=== PATIENT | male | born 1970 | race Two or more races ===

== ENCOUNTER 2016-05-05 12:20 | Emergency (ER) | payer OTHER ==
--- NOTE | 2016-05-05 12:36 | ER Document Report ---
ED Medical Screen (RME) - General Stated Complaint: LEFT SIDE FACIAL NUMBNESS Time seen by provider: 12:31 Mode of Arrival: Ambulatory Information source: Patient Notes: 45-year-old male felt like he had a swollen tender sub-mandibular lymph node that started 2 days ago. Today he has numbness around the left side of his face in the left eye does not blink as fast as the right eye. He can still raise both of his eyebrows. No Weakness in extremities no headache. I have greeted and performed a rapid initial assessment of this patient. A comprehensive ED assessment, evaluation of the patient, analysis of test results , and completion of the medical decision making process will be contacted by additional ED providers. - Related Data Allergies/Adverse Reactions: No Known Allergies Allergy (Verified 05/05/16 12:29) Past Medical History - Immunizations Hx Diphtheria, Pertussis, Tetanus Vaccination: Yes
--- NOTE | 2016-05-05 14:44 | ER Document Report ---
ED General - General Chief Complaint: Numbness of Face Stated Complaint: LEFT SIDE FACIAL NUMBNESS Mode of Arrival: Ambulatory Information source: Patient Notes: Patient presents to the emergency department with complaints of left-sided numbness to his face when he woke up this am. He denies trauma. He denies fever vomiting diarrhea. Denies past medical history reports his eyes been healthy. Patient is speaking in a clear voice no weakness noted.. TRAVEL OUTSIDE OF THE [place] IN LAST 30 DAYS: No - HPI Onset: This morning Onset/Duration: Sudden Quality of pain: No pain Severity: None Pain Level: Denies Associated symptoms: None Exacerbated by: Denies Relieved by: Denies Similar symptoms previously: No Recently seen / treated by doctor: No - Related Data Allergies/Adverse Reactions: No Known Allergies Allergy (Verified 05/05/16 12:29) Past Medical History - General Information source: Patient - Social History Smoking Status: Former Smoker Cigarette use (# per day): No Chew tobacco use (# tins/day): No Frequency of alcohol use: None Drug Abuse: None Occupation: vocational rehabilitation Lives with: Family Family History: Reviewed & Not Pertinent Patient has suicidal ideation: No Patient has homicidal ideation: No - Medical History Medical History: Negative Renal/ Medical History: Denies: Hx Peritoneal Dialysis Surgical Hx: Negative - Immunizations Hx Diphtheria, Pertussis, Tetanus Vaccination: Yes Review of Systems - Review of Systems Notes: Review HPI for review of systems., All other systems negative Physical Exam - Vital signs Vitals: Pulse Resp BP Pulse Ox 64 12 124/64 98 05/05/16 13:00 05/05/16 13:00 05/05/16 13:00 05/05/16 13:00 - Notes Notes: PHYSICAL EXAMINATION: GENERAL: Well-appearing and in no acute distress HEAD: Atraumatic, normocephalic. EYES: Pupils equal round and reactive to light, extraocular movements intact, sclera anicteric, conjunctiva are normal. opens/closes eyes without problem left side of mouth droops slightly with smile, left forehead with slight droop when raising eyebrows ENT: nares patent, oropharynx clear without exudates. Moist mucous membranes. NECK: Normal range of motion, supple without lymphadenopathy LUNGS: CTAB and equal. No wheezes rales or rhonchi. HEART: Regular rate and rhythm without murmurs ABDOMEN: Soft, no tenderness. No guarding, no rebound EXTREMITIES: Normal range of motion, no pitting edema. No cyanosis. 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 Normal sensory/motor exams. PSYCH: Normal mood, normal affect. SKIN: Warm, Dry, normal turgor, no rashes or lesions noted Course - Re-evaluation Re-evalutation: 05/05/16 15:00 I have consulted the attending provider Dr. Downing per [facility] guidelines Dr Downing in to assess the patient. He agrees with diagnosis of bells palsy Patient educated on bells policy and treatment. - Vital Signs Vital signs: Temp Pulse Resp BP Pulse Ox 64 22 H 122/84 97 05/05/16 13:00 05/05/16 14:30 05/05/16 14:30 05/05/16 14:30 Discharge - Discharge Clinical Impression: Carlton's palsy, Elevated blood pressure reading Condition: Stable Disposition: HOME, SELF-CARE Instructions: Carlton's Palsy ([facility]), Steroid Medication Additional Instructions: *You have been evaluated for left sided facial numbness, bells palsy * Artificial eyes for treatment of dry eyes *Follow up with your primary care provider for recheck this week *Take medication as prescribed -take 60 mg a day of prednisone for one week, then prednisone taper dose pack as directed -valcyclovir- take 1000mg po three times a day for one week *Return to ED for worsening condition, changes, needs Prescriptions: Prednisone [Deltasone 10 mg Tablet] 10 mg PO ASDIR PRN #21 tablet PRN Reason: Prednisone 60 mg PO DAILY #21 tablet Valacyclovir HCl [Valacyclovir] 1,000 mg PO TID #21 tablet Forms: Elevated Blood Pressure
[2016-05-05 15:26] VITALS: BP 113/81
== END 2016-05-05 15:30 | disposition home or self-care (01) ==
LOC: ER 12:20
DX: G51.0 Bell's palsy (principal); R03.0 Elevated blood-pressure reading, without diagnosis of hypertension; R20.0 Anesthesia of skin
CPT/HCPCS: 70450; 99284

== ENCOUNTER 2017-07-27 11:46 | Emergency (ER) | payer OTHER ==
--- NOTE | 2017-07-27 12:33 | ER Document Report ---
ED Medical Screen (RME) - General Chief Complaint: Leg Swelling Stated Complaint: KNEE SWELLING Time Seen by Provider: 07/27/17 12:26 Notes: This 47-year-old male patient reports getting Synvisc injections into his knees on at the [facility]. On Friday the knees began swelling with the right worse than the left. They become very painful. He gets these injections every 6 months and has never had a reaction like this before. The only difference is he is usually injected from a lateral approach, and this time a medial approach was used. I have greeted and performed a rapid initial assessment of this patient. A comprehensive ED assessment and evaluation of the patient, analysis of test results and completion of the medical decision making process will be conducted by additional ED providers. TRAVEL OUTSIDE OF THE [place] IN LAST 30 DAYS: No - Related Data Allergies/Adverse Reactions: No Known Allergies Allergy (Verified 07/27/17 11:50) Past Medical History - Social History Chew tobacco use (# tins/day): No Frequency of alcohol use: Rare Drug Abuse: None Renal/ Medical History: Denies: Hx Peritoneal Dialysis - Immunizations Hx Diphtheria, Pertussis, Tetanus Vaccination: Yes Physical Exam - Vital signs Vitals: Temp Pulse Resp BP Pulse Ox 98.5 F 88 16 111/74 96 07/27/17 12:07/27/17 12:07/27/17 12:07/27/17 12:07/27/17 12:01 Course - Vital Signs Vital signs: Temp Pulse Resp BP Pulse Ox 98.5 F 88 16 111/74 96 07/27/17 12:01 07/27/17 12:07/27/17 12:07/27/17 12:01 07/27/17 12:01
[2017-07-27 13:07] LABS: ABSOLUTE EOSINOPHILS # (AUTO) 0.5 10^3/uL (0.0-0.6); ABSOLUTE LYMPHOCYTES (AUTO) 1.9 10^3/uL (0.5-4.7); ABSOLUTE MONOCYTES (AUTO) 0.6 10^3/uL (0.1-1.4); ABSOLUTE NEUT (AUTO) 4.5 10^3/uL (1.7-8.2); BASOPHILS % (AUTO) 0.5 % (0-2); EOSINOPHILS % (AUTO) 6.5 % (0-6); HEMATOCRIT 44.8 % (37.9-51.0); HEMOGLOBIN 15.4 g/dL (13.5-17.0); LYMPHOCYTES % (AUTO) 25.4 % (13-45); MEAN CORPUSCULAR HEMOGLOBIN 29.8 pg (27.0-33.4); MEAN CORPUSCULAR HGB CONC 34.4 g/dL (32.0-36.0); MEAN CORPUSCULAR VOLUME 87 fl (80-97); MONOCYTES % (AUTO) 8.2 % (3-13); PLATELET COUNT 313 10^3/uL (150-450); RED BLOOD COUNT 5.17 10^6/uL (4.35-5.55); RED CELL DISTRIBUTION WIDTH 13.2 % (11.5-14.0); SEGMENTED NEUTROPHILS % (AUTO) 59.4 % (42-78); TOTAL CELLS COUNTED % (AUTO) 100 %; WHITE BLOOD COUNT 7.6 10^3/uL (4.0-10.5)
[2017-07-27 13:17] LABS: ALANINE AMINOTRANSFERASE 30 U/L (21-72); ALBUMIN 4.2 g/dL (3.5-5.0); ALKALINE PHOSPHATASE 78 U/L (38-126); ANION GAP 12 (5-19); ASPARTATE AMINO TRANSFERASE 21 U/L (17-59); BILIRUBIN,DIRECT 0.3 mg/dL (0.0-0.4); BILIRUBIN,TOTAL 0.5 mg/dL (0.2-1.3); BLOOD UREA NITROGEN 15 mg/dL (7-20); CALCIUM 9.8 mg/dL (8.4-10.2); CARBON DIOXIDE 29 mmol/L (22-30); CHLORIDE 104 mmol/L (98-107); GLUCOSE 84 mg/dL (75-110); POTASSIUM 4.7 mmol/L (3.6-5.0); SODIUM 145.1 mmol/L (137-145); TOTAL PROTEIN 7.6 g/dL (6.3-8.2)
[2017-07-27] MEDS ORDERED: IBUPROFEN 600 MG TABLET PO ONE (14:23)
[2017-07-27] MEDS ORDERED: ACETAMINOPHEN 325 MG TABLET PO ONE (14:23)
--- NOTE | 2017-07-27 14:35 | ER Document Report ---
ED General - General Chief Complaint: Leg Swelling Stated Complaint: KNEE SWELLING Time Seen by Provider: 07/27/17 12:26 Mode of Arrival: Ambulatory Information source: Patient Notes: 47-year-old male with no reported past medical history except for bilateral knee arthritis presents with complaint of bilateral knee swelling that started 4 days prior to arrival. Patient states that he underwent bilateral Synvisc injections 4 days ago. He states that he awoke 3 days ago with swelling of both knees. Patient has had prior injections but states that a different physician did them this time and a medial approach was taken. Patient is complaining of pain greater on the right than left. He denies any fever, erythema of the injection site, history of PE or DVT. Has been using Naprosyn and his knee braces. Has not contacted the physician who did the injections. TRAVEL OUTSIDE OF THE [place] IN LAST 30 DAYS: No - HPI Onset/Duration: Constant, Worse Quality of pain: Throbbing Severity: Moderate Associated symptoms: denies: Fever Exacerbated by: Walking Relieved by: Remaining still Similar symptoms previously: No Recently seen / treated by doctor: Yes - Related Data Allergies/Adverse Reactions: No Known Allergies Allergy (Verified 07/27/17 11:50) Past Medical History - General Information source: Patient - Social History Smoking Status: Former Smoker Chew tobacco use (# tins/day): No Frequency of alcohol use: Rare Drug Abuse: None Lives with: Family Family History: Reviewed & Not Pertinent Patient has suicidal ideation: No Patient has homicidal ideation: No Renal/ Medical History: Denies: Hx Peritoneal Dialysis Musculoskeltal Medical History: Reports Hx Arthritis - Immunizations Hx Diphtheria, Pertussis, Tetanus Vaccination: Yes Review of Systems - Review of Systems Notes: Patient denies fever, chills, nausea, vomiting, headache, ear pain, sore throat , cough, chest pain, shortness of breath, abdominal pain, back pain, dysuria, hematuria, rash, SI/HI. Physical Exam - Vital signs Vitals: Temp Pulse Resp BP Pulse Ox 98.5 F 88 16 111/74 96 07/27/17 12:01 07/27/17 12:01 07/27/17 12:01 07/27/17 12:01 07/27/17 12:01 Interpretation: Normal. No: Hypertensive, Febrile - Notes Notes: PHYSICAL EXAMINATION: GENERAL: Well-appearing, well-nourished and in no acute distress. HEAD: Atraumatic, normocephalic. EYES: Pupils equal round and reactive to light, extraocular movements intact, sclera anicteric, conjunctiva are normal. ENT: Nares patent, oropharynx clear without exudates. Moist mucous membranes. NECK: Normal range of motion, supple without lymphadenopathy LUNGS: Breath sounds clear to auscultation bilaterally and equal. No wheezes rales or rhonchi. HEART: Regular rate and rhythm without murmurs ABDOMEN: Soft, nontender, nondistended abdomen. No guarding, no rebound. No masses appreciated. Musculoskeletal: Right knee with medial swelling, no erythema, normal temperature and full range of motion with pain. Knee with small area of ecchymosis near the injection site on the medial aspect of the knee, no swelling , no erythema, normal temperature, full range of motion without pain. NEUROLOGICAL: Cranial nerves grossly intact. Normal speech, normal gait. Normal sensory, motor exams PSYCH: Normal mood, normal affect. SKIN: Warm, Dry, normal turgor, no rashes or lesions noted. Course - Re-evaluation Re-evalutation: 07/27/17 15:14 47-year-old male with a history of bilateral knee presents with complaint of bilateral knee swelling for 4 days after receiving a Synvisc injection. Patient has had previous injections in the past. Upon arrival vitals reviewed and within normal limits. Patient does not appear toxic or dehydrated. He is in no acute distress. Patient is afebrile. Exam is significant for moderate swelling of the right knee along the medial aspect without associated erythema or warmth. Left knee has a small area of ecchymosis but no swelling. Patient has full range of motions of both knees bilaterally. Low suspicion for bilateral septic joints at this time. X-ray of the right knee was obtained and reviewed. CBC shows no leukocytosis or anemia. CMP shows no electrolyte abnormalities and normal renal function. Patient received Motrin and Tylenol during his ED course. Anshu wrap was provided. Patient recommended to ice and elevate the legs as needed. He was also advised to return to the physician who injected his knees. Patient provided the opportunity to ask questions, and express concerns. Discharge instructions discussed. Patient is agreeable with discharge home. Return indications explained and discussed with the patient who displays understanding. Patient encouraged to return to the emergency department immediately with any concerns. Laboratory 07/27/17 07/27/17 12:45 12:45 WBC 7.6 RBC 5.17 Hgb 15.4 Hct 44.8 MCV 87 MCH 29.8 MCHC 34.4 RDW 13.2 Plt Count 313 Seg Neutrophils % 59.4 Lymphocytes % 25.4 Monocytes % 8.2 Eosinophils % 6.5 H Basophils % 0.5 Absolute Neutrophils 4.5 Absolute Lymphocytes 1.9 Absolute Monocytes 0.6 Absolute Eosinophils 0.5 Absolute Basophils 0.0 Sodium 145.1 H Potassium 4.7 Chloride 104 Carbon Dioxide 29 Anion Gap 12 BUN 15 Creatinine 0.88 Est GFR ( Amer) > 60 Est GFR (Non-Af Amer) > 60 Glucose 84 Calcium 9.8 Total Bilirubin 0.5 Direct Bilirubin 0.3 Neonat Total Bilirubin Not Reportable Neonat Direct Bilirubin Not Reportable Neonat Indirect Bili Not Reportable AST 21 ALT 30 Alkaline Phosphatase 78 Total Protein 7.6 Albumin 4.2 - Vital Signs Vital signs: Temp Pulse Resp BP Pulse Ox 98.5 F 88 16 111/74 96 07/27/17 12:01 07/27/17 12:01 07/27/17 12:01 07/27/17 12:01 07/27/17 12:01 - Laboratory Result Diagrams: 07/27/17 12:45 07/27/17 12:45 Laboratory results interpreted by me: 07/27/17 07/27/17 12:45 12:45 Eosinophils % 6.5 H Sodium 145.1 H - Diagnostic Test Radiology reviewed: Image reviewed, Reports reviewed Discharge - Discharge Clinical Impression: Pain and swelling of right knee Left knee pain Qualifiers: Chronicity: chronic Qualified Code(s): M25.562 - Pain in left knee; G89.29 - Other chronic pain; G89.29 - Other chronic pain Condition: Good Disposition: HOME, SELF-CARE Instructions: Knee Effusion ([facility]) Additional Instructions: [facility] with [facility] tomorrow for further care or return to the ED IMMEDIATELY if symptoms worsen or new concerns occur. If you cannot afford to follow up with your primary care physician a list of low cost clinics have been provided at the end of your discharge papers as well. Prescriptions: Hydrocodone/Acetaminophen [[place] 5-325 mg Tablet] 1 tab PO Q6H PRN #12 tablet PRN Reason: For Pain Scale 2-3 Ibuprofen [Motrin 600 Mg Tablet] 600 mg PO TID #15 tablet
--- NOTE | 2017-07-27 15:13 | RADIOLOGY REPORT (SQ) ---
EXAM DESCRIPTION: KNEE RIGHT 2 VIEWS COMPLETED DATE/TIME: 07/27/2017 3:04 pm REASON FOR STUDY: swelling COMPARISON: None. NUMBER OF VIEWS: Three views. TECHNIQUE: AP, lateral, and sunrise patella radiographic images acquired of the right knee. LIMITATIONS: None. FINDINGS: MINERALIZATION: Normal. BONES: No acute fracture. Mild medial compartment osteophytes. JOINT: Large joint effusion. SOFT TISSUES: No soft tissue swelling. No radio-opaque foreign body. OTHER: No other significant finding. IMPRESSION: Mild degenerative changes. Large joint effusion. TECHNICAL DOCUMENTATION: JOB ID: [id number] [employer]- All Rights Reserved Reading location - IP/workstation name: [email or web address]
[2017-07-27 15:28] VITALS: BP 122/72
== END 2017-07-27 15:25 | disposition home or self-care (01) ==
LOC: ER 11:46
DX: M25.461 Effusion, right knee (principal); M25.562 Pain in left knee; G89.29 Other chronic pain
CPT/HCPCS: 36415; 80053; 85025; 99284

== ENCOUNTER 2018-09-02 13:05 | Emergency (ER) | payer OTHER ==
[2018-09-02] MEDS ORDERED: ASPIRIN 81 MG TABLET, CHEWABLE PO ONE (13:48)
--- NOTE | 2018-09-02 13:48 | ER Document Report ---
ED Medical Screen (RME) - General Chief Complaint: Chest Pain Stated Complaint: CHEST PAIN Time Seen by Provider: 09/02/18 13:46 Mode of Arrival: Ambulatory Information source: Patient Notes: 48-year-old male presented to ED for complaint of chest pain for 2 weeks. He states it is worse today. He states it is across the lower chest goes from left to right. He states he does not have a history of coronary artery disease high blood pressure or cholesterol he does have a history of arthritis chronic back pain and some to do with his lungs but is not sure what. He states he is a former smoker drinks about a monthly and does not do any drugs. Patient is in no acute distress at this time. He states he does have chest pain. Has not taken any aspirin today. I have greeted and performed a rapid initial assessment of this patient. A comprehensive ED assessment and evaluation of the patient, analysis of test results and completion of medical decision making process will be conducted by an additional ED providers. Dictation of this chart was performed using voice recognition software; therefore, there may be some unintended grammatical errors. TRAVEL OUTSIDE OF THE [place] IN LAST 30 DAYS: No - Related Data Allergies/Adverse Reactions: No Known Allergies Allergy (Verified 09/02/18 13:08) Past Medical History Renal/ Medical History: Denies: Hx Peritoneal Dialysis Musculoskeltal Medical History: Reports Hx Arthritis - Immunizations Hx Diphtheria, Pertussis, Tetanus Vaccination: Yes Physical Exam - Vital signs Vitals: Temp Pulse Resp BP Pulse Ox 98.2 F 88 16 118/76 95 09/02/18 13:24 09/02/18 13:24 09/02/18 13:24 09/02/18 13:24 09/02/18 13:24 Course - Vital Signs Vital signs: Temp Pulse Resp BP Pulse Ox 98.2 F 88 16 118/76 95 09/02/18 13:24 09/02/18 13:24 09/02/18 13:24 09/02/18 13:24 09/02/18 13:24
[2018-09-02 14:23] LABS: ABSOLUTE LYMPHOCYTES (AUTO) 1.3 10^3/uL (0.5-4.7); ABSOLUTE MONOCYTES (AUTO) 0.4 10^3/uL (0.1-1.4); ABSOLUTE NEUT (AUTO) 4.9 10^3/uL (1.7-8.2); BASOPHILS % (AUTO) 0.5 % (0-2); EOSINOPHILS % (AUTO) 0.4 % (0-6); HEMATOCRIT 45.2 % (37.9-51.0); HEMOGLOBIN 15.4 g/dL (13.5-17.0); LYMPHOCYTES % (AUTO) 19.4 % (13-45); MEAN CORPUSCULAR HEMOGLOBIN 29.6 pg (27.0-33.4); MEAN CORPUSCULAR HGB CONC 34.2 g/dL (32.0-36.0); MEAN CORPUSCULAR VOLUME 87 fl (80-97); MONOCYTES % (AUTO) 6.7 % (3-13); PLATELET COUNT 350 10^3/uL (150-450); RED BLOOD COUNT 5.22 10^6/uL (4.35-5.55); RED CELL DISTRIBUTION WIDTH 13.6 % (11.5-14.0); TOTAL CELLS COUNTED % (AUTO) 100 %; WHITE BLOOD COUNT 6.7 10^3/uL (4.0-10.5)
--- NOTE | 2018-09-02 14:23 | RADIOLOGY REPORT (SQ) ---
EXAM DESCRIPTION: CHEST 2 VIEWS COMPLETED DATE/TIME: 09/02/2018 2:09 pm REASON FOR STUDY: chest pain COMPARISON: None. EXAM PARAMETERS: NUMBER OF VIEWS: two views TECHNIQUE: Digital Frontal and Lateral radiographic views of the chest acquired. RADIATION DOSE: NA LIMITATIONS: none FINDINGS: LUNGS AND PLEURA: No opacities, masses or pneumothorax. No pleural effusion. MEDIASTINUM AND HILAR STRUCTURES: No masses or contour abnormalities. HEART AND VASCULAR STRUCTURES: Heart normal size. No evidence for failure. BONES: No acute findings. HARDWARE: None in the chest. OTHER: No other significant finding. IMPRESSION: No acute abnormality of the lungs. TECHNICAL DOCUMENTATION: JOB ID: [id number] [employer]- All Rights Reserved Reading location - IP/workstation name: [email or web address]
[2018-09-02 14:30] LABS: APPEARANCE,URINE CLEAR; BILIRUBIN,URINE NEGATIVE (NEGATIVE); COLOR,URINE YELLOW; GLUCOSE, URINE 50 mg/dL (NEGATIVE); KETONES,URINE NEGATIVE (NEGATIVE); LEUKOCYTE ESTERASE,URINE NEGATIVE (NEGATIVE); NITRITE,URINE NEGATIVE (NEGATIVE); PROTEIN,URINE NEGATIVE (NEGATIVE); URINE SPECIFIC GRAVITY 1.011; UROBILINOGEN,URINE NEGATIVE mg/dL (<2.0)
[2018-09-02 14:43] LABS: ALANINE AMINOTRANSFERASE 29 U/L (21-72); ALBUMIN 4.8 g/dL (3.5-5.0); ALKALINE PHOSPHATASE 78 U/L (38-126); ANION GAP 16 (5-19); ASPARTATE AMINO TRANSFERASE 29 U/L (17-59); BILIRUBIN,DIRECT 0.3 mg/dL (0.0-0.4); BILIRUBIN,TOTAL 0.5 mg/dL (0.2-1.3); BLOOD UREA NITROGEN 7 mg/dL (7-20); CALCIUM 9.6 mg/dL (8.4-10.2); CARBON DIOXIDE 27 mmol/L (22-30); CHLORIDE 101 mmol/L (98-107); GLUCOSE 110 mg/dL (75-110); LIPASE 78.7 U/L (23-300); POTASSIUM 3.9 mmol/L (3.6-5.0); SODIUM 143.9 mmol/L (137-145); TOTAL PROTEIN 8.3 g/dL (6.3-8.2)
[2018-09-02 14:54] LABS: CREATINE KINASE MB 0.53 ng/mL (<4.55)
[2018-09-02 14:55] LABS: TROPONIN I < 0.012 ng/mL
[2018-09-02] MEDS ORDERED: KETOROLAC TROMETHAMINE INJ/PF 30 MG/1 ML SDV IV ONE (15:15)
--- NOTE | 2018-09-02 15:19 | ER Document Report ---
ED General - General Chief Complaint: Chest Pain Stated Complaint: CHEST PAIN Time Seen by Provider: 09/02/18 13:46 [facility] [[facility]] - Follow up as needed Mode of Arrival: Ambulatory Information source: Patient, Relative, [facility] Records Notes: 48-year-old male with no reported past medical history presents with complaint of 2 weeks of intermittent chest pain that worsened today. Patient describes the pain as sharp, stabbing. Patient states the pain was intermittently present but has been present all day today. Patient denies any aggravating or alleviating factors. He denies any associated nausea, dizziness, diaphoresis, shortness of breath, leg swelling, radiation of pain. Patient does report having helped a friend move furniture approximately 2 weeks ago. He has not tried any medication for this. He does state that he had a prior stress test about 6 years ago with the [facility]. Patient does have a history of recent pneumonia in June 2018. TRAVEL OUTSIDE OF THE [place] IN LAST 30 DAYS: No - HPI Onset: Other Onset/Duration: Gradual, Intermittent, Worse Quality of pain: Burning, Sharp Severity: Mild Associated symptoms: Chest pain. denies: Chills, Productive cough, Fever, Headache, Hurts to breath, Leg swelling, Nausea, Vomiting, Shortness of breath, Sweating Exacerbated by: Denies Relieved by: Denies Similar symptoms previously: Yes Recently seen / treated by doctor: No - Related Data Allergies/Adverse Reactions: No Known Allergies Allergy (Verified 09/02/18 13:08) Past Medical History - General Information source: Patient - Social History Smoking Status: Former Smoker Frequency of alcohol use: Rare Drug Abuse: None Lives with: Spouse/Significant other Family History: Reviewed & Not Pertinent Patient has suicidal ideation: No Patient has homicidal ideation: No - Medical History Medical History: Negative Renal/ Medical History: Denies: Hx Peritoneal Dialysis Musculoskeletal Medical History: Reports Hx Arthritis - Immunizations Hx Diphtheria, Pertussis, Tetanus Vaccination: Yes Review of Systems - Review of Systems Notes: REVIEW OF SYSTEMS: CONSTITUTIONAL : Denies fever, chills, or sweats. Denies recent illness. Denies weight loss, recent hospitalizations. EENT: Denies visual changes, eye pain. Denies sore throat, oral lesions, difficulty swallowing. CARDIOVASCULAR: + chest pain. Denies palpitations. Denies lower extremity edema. RESPIRATORY: Denies cough. Denies shortness of breath, wheezing. GASTROINTESTINAL: Denies abdominal pain or distention. Denies nausea, vomiting, or diarrhea. Denies blood in vomitus, stools, or per rectum. Denies black, tarry stools. Denies constipation. GENITOURINARY: Denies difficulty urinating, painful urination, frequency, blood in urine, testicular pain or penile discharge. MUSCULOSKELETAL: Denies back or neck pain or stiffness. Denies joint pain or swelling. SKIN: Denies rash, lesions or sores. HEMATOLOGIC : Denies easy bruising or bleeding. LYMPHATIC: Denies swollen glands. NEUROLOGICAL: Denies confusion or altered mental status. Denies loss of consciousness. Denies dizziness or lightheadedness. Denies headache. Denies weakness or paralysis. Denies problems difficulty with ambulation, slurred speech. Denies sensory loss, numbness, or tingling. Denies seizures. PSYCHIATRIC: Denies anxiety or stress. Denies depression, suicidal ideation, or Physical Exam - Vital signs Vitals: Temp Pulse Resp BP Pulse Ox 98.2 F 88 16 118/76 95 09/02/18 13:24 09/02/18 13:24 09/02/18 13:24 09/02/18 13:24 09/02/18 13:24 - Notes Notes: PHYSICAL EXAMINATION: GENERAL: Well-appearing, well-nourished and in no acute distress. HEAD: Atraumatic, normocephalic. EYES: Pupils equal round and reactive to light, extraocular movements intact, sclera anicteric, conjunctiva are normal. ENT: Nares patent, oropharynx clear without exudates. Moist mucous membranes. NECK: Normal range of motion, supple without lymphadenopathy LUNGS: Breath sounds clear to auscultation bilaterally and equal. No wheezes rales or rhonchi. Chest wall tenderness with palpation to the right chest wall. No associated ecchymosis, crepitus HEART: Regular rate and rhythm without murmurs ABDOMEN: Soft, nontender, nondistended abdomen. No guarding, no rebound. No masses appreciated. Musculoskeletal: Normal range of motion, no pitting or edema. No cyanosis. NEUROLOGICAL: Cranial nerves grossly intact. Normal speech, normal gait. Normal sensory, motor exams PSYCH: Normal mood, normal affect. SKIN: Warm, Dry, normal turgor, no rashes or lesions noted. Course - Re-evaluation Re-evalutation: 09/02/18 15:17 Laboratory 09/02/18 09/02/18 09/02/18 13:56 13:56 13:56 WBC 6.7 RBC 5.22 Hgb 15.4 Hct 45.2 MCV 87 MCH 29.6 MCHC 34.2 RDW 13.6 Plt Count 350 Seg Neutrophils % 73.0 Lymphocytes % 19.4 Monocytes % 6.7 Eosinophils % 0.4 Basophils % 0.5 Absolute Neutrophils 4.9 Absolute Lymphocytes 1.3 Absolute Monocytes 0.4 Absolute Eosinophils 0.0 Absolute Basophils 0.0 Sodium 143.9 Potassium 3.9 Chloride 101 Carbon Dioxide 27 Anion Gap 16 BUN 7 Creatinine 0.82 Est GFR ( Amer) > 60 Est GFR (Non-Af Amer) > 60 Glucose 110 Calcium 9.6 Total Bilirubin 0.5 Direct Bilirubin 0.3 Neonat Total Bilirubin Not Reportable Neonat Direct Bilirubin Not Reportable Neonat Indirect Bili Not Reportable AST 29 ALT 29 Alkaline Phosphatase 78 CK-MB (CK-2) 0.53 Troponin I < 0.012 Total Protein 8.3 H Albumin 4.8 Lipase 78.7 Urine Color Urine Appearance Urine pH Ur Specific [place] Urine Protein Urine Glucose (UA) Urine Ketones Urine Blood Urine Nitrite Urine Bilirubin Urine Urobilinogen Ur Leukocyte Esterase Urine WBC (Auto) Urine RBC (Auto) Urine Mucus (Auto) Urine Ascorbic Acid 09/02/18 13:56 WBC RBC Hgb Hct MCV MCH MCHC RDW Plt Count Seg Neutrophils % Lymphocytes % Monocytes % Eosinophils % Basophils % Absolute Neutrophils Absolute Lymphocytes Absolute Monocytes Absolute Eosinophils Absolute Basophils Sodium Potassium Chloride Carbon Dioxide Anion Gap BUN Creatinine Est GFR ( Amer) Est GFR (Non-Af Amer) Glucose Calcium Total Bilirubin Direct Bilirubin Neonat Total Bilirubin Neonat Direct Bilirubin Neonat Indirect Bili AST ALT Alkaline Phosphatase CK-MB (CK-2) Troponin I Total Protein Albumin Lipase Urine Color YELLOW Urine Appearance CLEAR Urine pH 9.0 Ur Specific [place] 1.011 Urine Protein NEGATIVE Urine Glucose (UA) 50 H Urine Ketones NEGATIVE Urine Blood NEGATIVE Urine Nitrite NEGATIVE Urine Bilirubin NEGATIVE Urine Urobilinogen NEGATIVE Ur Leukocyte Esterase NEGATIVE Urine WBC (Auto) 0 Urine RBC (Auto) 1 Urine Mucus (Auto) RARE Urine Ascorbic Acid NEGATIVE Chest X-Ray 09/02/18 13:48 IMPRESSION: No acute abnormality of the lungs. Chest X-Ray 09/02/18 13:48 IMPRESSION: No acute abnormality of the lungs. Temp Pulse Resp BP Pulse Ox 98.2 F 88 16 118/76 95 09/02/18 13:24 09/02/18 13:24 09/02/18 13:24 09/02/18 13:24 09/02/18 13:24 48-year-old male presents with 2 weeks of chest pain that worsened today. Describes it as a stabbing intermittent pain. Vital signs reviewed and within normal limits. Patient does not appear toxic or dehydrated. He is in no acute distress. Chest pain is reproducible with palpation. Patient was placed on school bus monitor and an EKG was obtained which showed the patient to be in normal sinus rhythm at a rate of 83. CBC is without leukocytosis or anemia. CMP is without electrolyte abnormality. Cardiac enzymes within normal limits. Patient offered delta troponin but declined. Patient advised to follow-up with his primary care physician at the [facility]. Will provide the patient with his lab work that was performed today. Patient did receive Toradol for his chest wall pain. 09/02/18 15:18 HEART Score: History-1 ECG-0 Age-0 Risk Factors-0 Troponin-0 Total: 1 If HEART score is = 3 AND both troponin measurements are normal, the 30 day risk of a major adverse cardiac event (all-cause mortality, myocardial infarction or need for coronary revascularization) is < 1% (Sensitivity 100%, NPV 100%). Chest pain in a patient without evidence of cardiac or other serious etiology on workup today. I discussed with patient that, based on their age, risk factors and emergency department testing today, the likelihood that their symptoms are related to a heart attack is very low (estimated risk of heart attack or over the next 30 days of less than 1%). The patient demonstrates decision making capacity and has verbalized an understanding of these risks to me. Based on this, the patient has chosen to follow-up as an outpatient. Usual chest pain return precautions reviewed. The patient states understanding and agreement with this plan. Patient was evaluated and treated as appropriate for the patient's presenting symptoms and complaint, with consideration of any critical or life threatening conditions that may be associated with their obtained history and exam as noted above. All results were discussed with patient and... Patient provided the opportunity to ask questions, and express concerns. Patient was educated on treatments based on their presumed diagnosis as noted above. At this time we will discharge the patient with return precautions and follow-up recommend ations. Verbal discharge instructions given a the bedside. Medication warnings reviewed. Patient is in agreement with this plan and has verbalized understanding of return precautions. After careful consideration I feel that that patient can be safely discharged from the emergency department, they were advised to followup with a primary care physician in 2-3 days. Dictation on this chart was performed using voice recognition software and may result in unintended grammatical, spelling, syntax or errors. - Vital Signs Vital signs: Temp Pulse Resp BP Pulse Ox 98.2 F 88 16 118/76 95 09/02/18 13:24 09/02/18 13:24 09/02/18 13:24 09/02/18 13:24 09/02/18 13:24 - Laboratory Result Diagrams: 09/02/18 13:56 09/02/18 13:56 Laboratory results interpreted by me: 09/02/18 09/02/18 13:56 13:56 Total Protein 8.3 H Urine Glucose (UA) 50 H - Diagnostic Test Radiology reviewed: Image reviewed, Reports reviewed - EKG Interpretation by Me EKG shows normal: Sinus rhythm Rate: Normal Rhythm: NSR When compared to previous EKG there are: Previous EKG unavailable Discharge - Discharge Clinical Impression: Chest wall pain, Costochondritis Chest pain Qualifiers: Chest pain type: unspecified Qualified Code(s): R07.9 - Chest pain, unspecified Condition: Good Disposition: HOME, SELF-CARE Instructions: Chest Pain of Unclear Cause ([facility]), Chest Wall Pain ([facility]) Additional Instructions: After performing a Medical Screening Examination, I estimate there is LOW risk for RUPTURED ESOPHAGUS, PNEUMOTHORAX, PULMONARY EMBOLISM, ACUTE CORONARY SYNDR OME, OR THORACIC AORTIC DISSECTION, thus I consider the discharge disposition reasonable. I have reevaluated this patient multiple times and no significant life threatening changes are noted. The patient and I have discussed the diagnosis and risks, and we agree with discharging home with close follow-up. We also discussed returning to the Emergency Department immediately if new or worsening symptoms occur. We have discussed the symptoms which are most concerning (e.g., bloody sputum, worsening pain or shortness of breath) that necessitate immediate return. Referrals: [facility] [Primary [facility]] - Follow up as needed
[2018-09-02 15:36] VITALS: BP 111/79
--- NOTE | 2018-09-02 15:44 | EKG REPORT ---
SEVERITY:- NORMAL ECG - SINUS RHYTHM : Confirmed by: Josh Raman MD 02-Sep-2018 15:44:04
== END 2018-09-02 15:39 | disposition home or self-care (01) ==
LOC: ER 13:05
DX: M94.0 Chondrocostal junction syndrome [Tietze] (principal); R07.89 Other chest pain; Z87.01 Personal history of pneumonia (recurrent); Z87.891 Personal history of nicotine dependence
CPT/HCPCS: 93005; 99285; 96374; 36415; 82553; 83690; 85025; 80053; 81001; 84484; 71046; 93010; J1885